=== PATIENT | female | born 1955 | race Two or more races ===

== ENCOUNTER 2020-10-24 19:03 | Emergency (ER) | payer OTHER ==
[~2020-10-24] VITALS: Ht 167.6 cm; Wt 60.8 kg
== END 2020-10-24 23:04 | disposition home or self-care (01) ==
LOC: ER 19:03
DX: S60.051A Contusion of right little finger without damage to nail, initial encounter (principal); W22.8XXA Striking against or struck by other objects, initial encounter; Y93.89 Activity, other specified; Y92.018 Other place in single-family (private) house as the place of occurrence of the external cause; Y99.8 Other external cause status